=== PATIENT | female | born 1990 | race Two or more races ===

== ENCOUNTER 2019-07-24 07:26 | Emergency (ER) | payer SELFPAY ==
[~2019-07-24] VITALS: Ht 165.1 cm; Wt 56.7 kg
[2019-07-24 08:22] LABS: BASOPHILS % (AUTO) 1.1 % (0.0-2.0); EOSINOPHILS % (AUTO) 1.5 % (0.0-6.0); HEMATOCRIT 38 % (33-45); HEMOGLOBIN 12.6 g/dL (11.5-14.8); LYMPHOCYTES # (AUTO) 1.6 /CMM (0.8-4.8); LYMPHOCYTES % (AUTO) 42.4 % (20.0-44.0); MEAN CORPUSCULAR HGB CONC 33 g/dl (31.0-36.0); MEAN CORPUSCULAR VOLUME 92 fL (82-100); MONOCYTES # (AUTO) 0.4 /CMM (0.1-1.30); MONOCYTES % (AUTO) 11.3 % (2.0-12.0); NEUTROPHILS # (AUTO) 1.7 /CMM (1.8-8.9); NEUTROPHILS % (AUTO) 43.7 % (43.0-81.0); PLATELET COUNT (AUTO) 191 /CMM (150-450); RED BLOOD CELL COUNT(AUTO) 4.16 MIL/uL (4.0-5.2); WHITE BLOOD COUNT (AUTO) 3.9 K/uL (4.3-11.0)
[2019-07-24 08:25] LABS: CALCIUM, SERUM 8.8 mg/dL (8.5-10.1); CREATININE 0.7 mg/dL (0.6-1.3); POTASSIUM 3.9 mmol/L (3.5-5.1)
--- NOTE | 2019-07-24 08:30 | NUR ---
updated with plan of care. Await update and test results
[2019-07-24 08:31] LABS: ALBUMIN 4.2 g/dL (3.4-5.0); BILIRUBIN,DIRECT 0.2 mg/dL (0.0-0.2); BILIRUBIN,TOTAL 0.8 mg/dL (0.2-1.0); TOTAL PROTEIN, SERUM 7.8 g/dL (6.4-8.2)
[2019-07-24 08:37] LABS: APPEARANCE,URINE Clear (CLEAR); BILIRUBIN,URINE Negative (NEGATIVE); BLOOD, URINE Negative Ery/uL (NEGATIVE); COLOR,URINE Yellow (YELLOW); KETONES,URINE Negative (NEGATIVE); LEUKOCYTE ESTERASE ,URINE Negative (NEGATIVE); NITRITE, URINE Negative (NEGATIVE); PROTEIN,URINE Negative (NEGATIVE); UGLUCOSE Negative (NEGATIVE); UROBILINOGEN,URINE 0.2 EU/dL (0.2)
[2019-07-24 09:59] VITALS: BP 101/59
--- NOTE | 2019-07-24 10:00 | NUR ---
For Discharge - Patient discharged to home in stable condition. Written and verbal after care instructions given. Patient verbalizes understanding of instruction.
== END 2019-07-24 10:00 | disposition home or self-care (01) ==
LOC: ER 07:29
DX: R30.0 Dysuria (principal); Z98.82 Breast implant status; Z88.6 Allergy status to analgesic agent
CPT/HCPCS: 36415; 80048-TC; 80076-TC; 81000-TC; 83690-TC; 84703-TC; 85025-TC; 87086-TC

== ENCOUNTER 2020-08-27 22:52 | Emergency (ER) | payer MEDICAID ==
[~2020-08-27] VITALS: Ht 165.1 cm; Wt 54.4 kg
[2020-08-28] MEDS: MORPHINE SULFATE INJ 2 MG/ML DISP.SYRIN IV ONE (00:21)
[2020-08-28] MEDS: IV NS 0.9% 1,000 ML BAG IV ONE (00:21)
[2020-08-28] MEDS: ONDANSETRON HCL/PF 4 MG/2 ML VIAL IVP ONE (00:21)
--- NOTE | 2020-08-28 00:28 | NUR ---
PATIENT REFUSED MORPHINE AND ZOFRAN.
[2020-08-28 00:30] LABS: BASOPHILS % (AUTO) 0.8 % (0.0-2.0); EOSINOPHILS % (AUTO) 1.4 % (0.0-6.0); HEMATOCRIT 38 % (33-45); HEMOGLOBIN 12.6 g/dL (11.5-14.8); LYMPHOCYTES # (AUTO) 2.7 K/uL (0.8-4.8); LYMPHOCYTES % (AUTO) 43.7 % (20.0-44.0); MEAN CORPUSCULAR HGB CONC 33 g/dl (31.0-36.0); MEAN CORPUSCULAR VOLUME 88 fL (82-100); MONOCYTES # (AUTO) 0.5 K/uL (0.1-1.30); MONOCYTES % (AUTO) 8.2 % (2.0-12.0); NEUTROPHILS # (AUTO) 2.8 K/uL (1.8-8.9); NEUTROPHILS % (AUTO) 45.9 % (43.0-81.0); PLATELET COUNT (AUTO) 295 K/uL (150-450); RED BLOOD CELL COUNT(AUTO) 4.28 MIL/uL (4.0-5.2); WHITE BLOOD COUNT (AUTO) 6.1 K/uL (4.3-11.0)
[2020-08-28 00:30] LABS: BILIRUBIN,URINE NEGATIVE (NEGATIVE); COLOR,URINE YELLOW (YELLOW); LEUKOCYTE ESTERASE ,URINE NEGATIVE (NEGATIVE); NITRITE, URINE NEGATIVE (NEGATIVE); PH,URINE 8.5 (5.0-8.0); PROTEIN,URINE NEGATIVE (NEGATIVE); UGLUCOSE NEGATIVE (NEGATIVE); UROBILINOGEN,URINE 0.2 EU/dL (0.2)
[2020-08-28 00:39] LABS: CALCIUM, SERUM 8.8 mg/dL (8.5-10.1); CREATININE 0.7 mg/dL (0.6-1.3); POTASSIUM 3.7 mmol/L (3.5-5.1)
[2020-08-28 00:46] LABS: BILIRUBIN,DIRECT 0.1 mg/dL (0.0-0.2); BILIRUBIN,TOTAL 0.6 mg/dL (0.2-1.0); TOTAL PROTEIN, SERUM 8.1 g/dL (6.4-8.2)
[2020-08-28 00:48] LABS: BACTERIA,URINE None seen /HPF (None Seen); SQUAMOUS EPITHELIAL CELL,UR Rare /HPF (None Seen); WBC,URINE 0-2 /HPF (0-3)
--- NOTE | 2020-08-28 01:22 | NUR ---
Patient discharged to home in stable condition. Written and verbal after care instructions given. Patient verbalizes understanding of instruction.
[2020-08-28] MEDS ORDERED: LANS30TA4 GT (01:52)
[2020-08-28 01:57] LABS: CHOLESTEROL 182 mg/dL (<200); HDL CHOLESTEROL 75 mg/dL (40-60); LDL 91 mg/dL (0-99); TRIGLYCERIDES 32 mg/dL (30-150)
[2020-08-28 05:21] VITALS: BP 125/76
== END 2020-08-28 01:22 | disposition home or self-care (01) ==
LOC: ER 23:07
DX: R10.84 Generalized abdominal pain (principal); R11.2 Nausea with vomiting, unspecified; Z98.890 Other specified postprocedural states; Z88.6 Allergy status to analgesic agent
CPT/HCPCS: 36415; 76705; 80048; 80061; 80076; 81001; 83690; 84703; 85025; 96360; 99284; J7030

== ENCOUNTER 2020-10-13 18:29 | Emergency (ER) | payer OTHER ==
[~2020-10-13] VITALS: Ht 165.1 cm; Wt 54.4 kg
[~2020-10-13 18:29] MED LIST: LANS30TA4 GT
[2020-10-13 19:02] VITALS: BP 108/62
[2020-10-13] MEDS ORDERED: IBUPROFEN 600 MG TABLET PO ONE (19:30)
[2020-10-13] MEDS ORDERED: IBUPROFEN 600 MG TABLET ONE (19:32)
[2020-10-13] MEDS ORDERED: IBUP-1955 PO (19:45)
--- NOTE | 2020-10-13 20:13 | NUR ---
Patient discharged to home in stable condition. Written and verbal after care instructions given. Patient verbalizes understanding of instruction.
== END 2020-10-13 20:15 | disposition home or self-care (01) ==
LOC: ER 18:33
DX: S92.515A Nondisplaced fracture of proximal phalanx of left lesser toe(s), initial encounter for closed fracture (principal); Z98.82 Breast implant status; Z88.6 Allergy status to analgesic agent; Z79.899 Other long term (current) drug therapy; W22.8XXA Striking against or struck by other objects, initial encounter; Y93.89 Activity, other specified; Y92.89 Other specified places as the place of occurrence of the external cause; Y99.8 Other external cause status
CPT/HCPCS: 73660-TC

== ENCOUNTER 2021-07-19 09:07 | Emergency (ER) | payer MEDICAID, OTHER ==
[~2021-07-19] VITALS: Ht 162.6 cm; Wt 54.4 kg
[~2021-07-19 09:07] MED LIST changes: +IBUP-1955 PO
--- NOTE | 2021-07-19 09:25 | NUR ---
BIBS FOR C/O SORE THROAT SINCE YESTERDAY. TRAVELED TO [facility] 2 WEEKS AGO. THE PATIENT IS ALERT AND ORIENTED X4. IN ROOM AIR AND DENIES SOB. RESPIRATION REGULAR AND UNLABORED. WILL CONTINUE TO MONITOR.
--- NOTE | 2021-07-19 09:25 | NUR ---
BIBS FOR C/O SORE THROAT SINCE YESTERDAY. TRAVELED TO [facility] 2 WEEKS AGO. PLACED IN ROOM 7. VITALS CHECKED.
[2021-07-19] MEDS ORDERED: IBUPROFEN 600 MG TABLET ONE (09:59)
[2021-07-19] MEDS ORDERED: DEXAMETHASONE SOD PHOSPHATE 10 MG/ML VIAL ONE (09:59)
[2021-07-19] MEDS ORDERED: IBUPROFEN 600 MG TABLET PO ONE (10:00)
[2021-07-19] MEDS ORDERED: DEXAMETHASONE SOD PHOSPHATE 10 MG/ML VIAL IM ONE (10:00)
--- NOTE | 2021-07-19 10:12 | NUR ---
[facility] FOR STREP SENT TO LAB
--- NOTE | 2021-07-19 10:30 | NUR ---
SWAB FOR NOVEL CORONAVIRUS SENT TO LAB
[2021-07-19] MEDS ORDERED: IBUP-1955 PO (12:34)
--- NOTE | 2021-07-19 12:40 | NUR ---
Patient discharged to home in stable condition. Written and verbal after care instructions given. Patient verbalizes understanding of instruction.
[2021-07-19 12:43] VITALS: BP 110/60
== END 2021-07-19 12:40 | disposition home or self-care (01) ==
LOC: ER 09:08
DX: J02.8 Acute pharyngitis due to other specified organisms (principal); Z20.822 Contact with and (suspected) exposure to COVID-19; R59.0 Localized enlarged lymph nodes; Z88.6 Allergy status to analgesic agent
CPT/HCPCS: 87070; 87880; 96372; 99283; C9803; J1100; U0003; 86403-TC